=== PATIENT | female | born 1945 | race Caucasian/White ===

== ENCOUNTER 2020-08-18 11:20 | Emergency (ER) | payer MEDICARE, BC ==
[~2020-08-18] VITALS: Ht 160 cm; Wt 77.3 kg
[~2020-08-18 11:20] MED LIST: ASPIRIN 81M81 MG/TA2 PO; CALCIUM1 CAP PO; COZAAR 25MG25 MG/TAB PO; LUTEIN PO; NORVASC 5MG5 MG/TAB PO; PAXIL 10MG10 MG PO; VITAMIN D 400400 IU PO
[2020-08-18 11:25] VITALS: TEMP 98.4
[2020-08-18] MEDS ORDERED: PAXIL 10MG10 MG PO (11:44)
[2020-08-18] MEDS ORDERED: COZAAR100 MG PO (11:45)
[2020-08-18] MEDS ORDERED: K-TAB20 PO (11:45)
[2020-08-18] MEDS ORDERED: LASIX 20MG TABL20 MG PO (11:46)
[2020-08-18] MEDS ORDERED: LIPITOR20 MG PO (11:46)
[2020-08-18] MEDS ORDERED: PRILOSEC 20MG20 MG PO (11:47)
[2020-08-18] MEDS ORDERED: CALCIUM CARBON650 M2 (11:47)
[2020-08-18] MEDS ORDERED: MASON NATURAL2000 IU PO (11:48)
[2020-08-18] MEDS ORDERED: OCUVITE1 TA1 PO (11:48)
[2020-08-18] MEDS ORDERED: CURCUMIN (11:49)
[2020-08-18] MEDS ORDERED: TURMERIC (11:49)
[2020-08-18] MEDS ORDERED: C Q 10 (11:50)
[2020-08-18 11:53] LABS: BASO % 0.4 % (0.0-2.0); EOS # 0.2 (0.0-0.7); EOS % 1.7 % (0-4.0); GRAN # 7.2 (1.4-6.5); GRAN % 80.6 % (42.2-75.2); HEMATOCRIT 39.9 % (37.0-47.0); HEMOGLOBIN 13.3 g/dl (12.5-16.0); LYMPH # 0.9 (1.2-3.4); LYMPH % 9.9 % (20.0-51.0); MEAN CELL VOLUME 88 fl (80.0-100.0); MEAN CORPUSCULAR HEMOGLOBIN 29 pg (27.0-31.0); MEAN CORPUSCULAR HGB CONC 33 g/dl (33.0-37.0); MEAN PLATELET VOLUME 11.7 fl (7.4-10.4); MONO # 0.6 (0.1-0.6); MONO % 7.1 % (1.7-9.3); PLATELET COUNT 211 K/mm3 (130-400); RED BLOOD COUNT 4.52 M/mm3 (4.10-5.30); REDCELL DISTRIBUTION WIDTH-CV 14.1 % (11.5-14.5)
[2020-08-18 12:02] LABS: INR 1.2 (0.8-3.0); PROTHROMBIN TIME 13.9 SECONDS (9.7-12.8)
[2020-08-18 12:20] LABS: ALANINE AMINOTRANSFERASE 23 U/L (4-34); ALBUMIN 4.6 gm/dL (3.5-5.0); ALKALINE PHOSPHATASE 96 U/L (50-136); ANION GAP 10 mmol/L (7-16); AST,SGOT 40 U/L (15-37); BILIRUBIN,TOTAL 0.9 mg/dL (0.0-1.0); BLOOD UREA NITROGEN 12 mg/dL (7-17); CALCIUM 9.3 mg/dL (8.4-10.2); CARBON DIOXIDE 27 mmol/L (22-30); CHLORIDE 104 mmol/L (98-107); CREATININE, serum 0.73 (0.52-1.25); GLUCOSE 125 mg/dL (74-106); LIPASE 53 U/L (23-300); POTASSIUM 4.5 mmol/L (3.4-5.0); SODIUM 140 mmol/L (137-145); TOTAL PROTEIN 8.1 gm/dL (6.4-8.2)
[2020-08-18 13:03] LABS: TROPONIN-I < 0.012 ng/mL (0.000-0.035)
[2020-08-18 13:08] LABS: COLLECTION METHOD CLEAN CATCH
[2020-08-18 13:20] LABS: PH 7 (5-8); SQUAMOUS EPITHELIAL 0-2 /hpf; URINE APPEARANCE Clear; URINE BACTERIA Rare /hpf; URINE BILIRUBIN Negative (NEGATIVE); URINE BLOOD 2+ (NEGATIVE); URINE COLOR Straw; URINE GLUCOSE Negative (NEGATIVE); URINE KETONE Negative (NEGATIVE); URINE LEUKOCYTE ESTERASE Trace (NEGATIVE); URINE NITRATE Negative (NEGATIVE); URINE PROTEIN(semi-quant) Negative (NEGATIVE); URINE RBC 0-2 /hpf; URINE UROBILINOGEN Negative (NEGATIVE)
[2020-08-18] MEDS ORDERED: OMNICEF 300MG300 MG PO (13:49)
[2020-08-18 13:57] VITALS: BP 137/88; PULSE 81
== END 2020-08-18 13:59 | disposition home or self-care (01) ==
LOC: COL.ER 11:20
PROVIDERS: Emergency Medicine
DX: N39.0 Urinary tract infection, site not specified (principal); I10 Essential (primary) hypertension; Z88.0 Allergy status to penicillin; Z79.01 Long term (current) use of anticoagulants
CPT/HCPCS: C9113; J7030

== ENCOUNTER → 2020-12-08 | Day surgery (SDC) | payer MEDICARE, BC ==
[~2020-12-08] MED LIST changes: +C Q 10; +CALCIUM CARBON650 M2; +CLARITIN 1010 MG/TAB PO; +COZAAR100 MG PO; +CURCUMIN; +K-TAB20 PO; +LASIX 20MG TABL20 MG PO; +LIPITOR20 MG PO; +MASON NATURAL2000 IU PO; +OCUVITE1 TA1 PO; +OMNICEF 300MG300 MG PO; +PRILOSEC 20MG20 MG PO; +TOPROL XL 50MG50 MG PO; +TURMERIC; +XANAX 0.5MG0.5 MG PO
== END ==
LOC: COL.CAR 12:00
DX: R07.9 Chest pain, unspecified (principal); Z53.8 Procedure and treatment not carried out for other reasons; Z20.822 Contact with and (suspected) exposure to COVID-19
CPT/HCPCS: J2704

== ENCOUNTER 2020-12-30 12:09 | Day surgery (SDC) | payer MEDICARE, BC ==
[2020-12-30] VITALS (15 sets, daily range): BP systolic 102–168; BP diastolic 56–89; PULSE 58–64; TEMP 97.6–98.2
[~2020-12-30] VITALS: Ht 162.6 cm; Wt 75.1 kg
[~2020-12-30 12:09] MED LIST changes: -CLARITIN 1010 MG/TAB PO; -TOPROL XL 50MG50 MG PO; -XANAX 0.5MG0.5 MG PO
[2020-12-30 12:46] LABS: HEMATOCRIT 42.5 % (37.0-47.0); MEAN CELL VOLUME 86 fl (80.0-100.0); MEAN CORPUSCULAR HEMOGLOBIN 29 pg (27.0-31.0); MEAN CORPUSCULAR HGB CONC 33 g/dl (33.0-37.0); MEAN PLATELET VOLUME 11.5 fl (7.4-10.4); PLATELET COUNT 171 K/mm3 (130-400); RED BLOOD COUNT 4.92 M/mm3 (4.10-5.30); REDCELL DISTRIBUTION WIDTH-CV 13.8 % (11.5-14.5)
[2020-12-30 12:58] LABS: INR 1.3 (0.8-3.0); PROTHROMBIN TIME 14.9 SECONDS (9.7-12.8)
[2020-12-30] MEDS ORDERED: TOPROL XL 50MG50 MG PO (12:58)
[2020-12-30] MEDS ORDERED: XANAX 0.5MG0.5 MG PO (12:59)
[2020-12-30] MEDS ORDERED: CLARITIN 1010 MG/TAB PO (12:59)
[2020-12-30 13:00] LABS: PARTIAL THROMBOPLASTIN TIME 28.7 SECONDS (26.0-37.0)
[2020-12-30 13:07] LABS: CALCIUM 9.1 mg/dL (8.4-10.2); CREATININE, serum 0.72 (0.52-1.25); POTASSIUM 4.5 mmol/L (3.4-5.0)
--- NOTE | 2020-12-30 14:00 | NUR ---
SEE MERGE AND ANESTHESIA RECORD FOR MEDICATION ADMINISTRTION TIMES, INTRA AND POST SEDATION ASSESSMENT
--- NOTE | 2020-12-30 16:40 | NUR ---
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
--- NOTE | 2020-12-30 18:32 | NUR ---
continues to do well post cath, puncture sites look good no signs of bleeding or hematoma, vital signs stable, flat time over and assisted patient to rest room, will continue to monitor
[2020-12-31 00:11] VITALS: BP 134/70; PULSE 62; TEMP 98.1
[2020-12-31 03:56] VITALS: BP 136/72; PULSE 58; TEMP 98
[2020-12-31 04:40] VITALS: BP 136/72; PULSE 58; TEMP 98
--- NOTE | 2020-12-31 05:07 | NUR ---
Patient rested quietly in bed throughout the night. Radial and femoral dressings remain clean, dry, and intact. Patient alert and oriented x's 4, ambulating independently, and denies any nausea or vomiting, or pain.
[2020-12-31] MEDS ORDERED: BRILINTA90 MG PO (07:43)
[2020-12-31] MEDS ORDERED: ASPIRIN E.C. 8181 MG PO (07:44)
[2020-12-31 08:00] VITALS: BP 141/80; PULSE 65; TEMP 97.7
--- NOTE | 2020-12-31 08:00 | NUR ---
Pt assessment complete. Pt is A/Ox4, independent in the room. Denies any chest pain, does report a headache. POC discussed with patient who verbalizes understanding no needs at this time. Call sid guzman.
--- NOTE | 2020-12-31 09:57 | NUR ---
Discharge instructions and paperwork reviewed with patient. All questions answered at this time. IV to LAC dc'd catheter tip intact.
== END 2020-12-31 09:55 | disposition home or self-care (01) ==
LOC: COL.CAR 12:09 → MEDICAL 16:34 → COL.CAR 12-31 09:55
PROVIDERS: Internal Medicine Cardiovascular Disease
DX: I25.10 Atherosclerotic heart disease of native coronary artery without angina pectoris (principal); I34.0 Nonrheumatic mitral (valve) insufficiency
CPT/HCPCS: OP; C9600; J0360; J1644; J1940; J2704; J7030; Q9967